=== PATIENT | female | born 1965 | race Two or more races ===

== ENCOUNTER 2019-08-02 13:00 | Outpatient (CLI) | payer OTHER | END 2019-08-02 13:23 | disposition home or self-care (01) | LOC: SONOGRAMA 13:00 | PROVIDERS: ATTEND Surgery | DX: N60.11 Diffuse cystic mastopathy of right breast (principal); N60.12 Diffuse cystic mastopathy of left breast ==

== ENCOUNTER 2021-01-16 09:45 | Outpatient (CLI) | payer OTHER | END 2021-01-16 09:48 | disposition home or self-care (01) | LOC: MAMO-SONO 09:45 | PROVIDERS: ATTEND Surgery | DX: N60.12 Diffuse cystic mastopathy of left breast (principal); N60.11 Diffuse cystic mastopathy of right breast; C50.412 Malignant neoplasm of upper-outer quadrant of left female breast ==

== ENCOUNTER 2022-05-01 10:26 | Outpatient (CLI) | payer OTHER | END 2022-05-01 10:38 | disposition home or self-care (01) | LOC: SONOGRAMA 10:26 | PROVIDERS: ATTEND Surgery | DX: N60.11 Diffuse cystic mastopathy of right breast (principal); N60.12 Diffuse cystic mastopathy of left breast ==